=== PATIENT | male | born 1985 | race Caucasian/White ===

== ENCOUNTER 2016-12-07 16:47 | Emergency (ER) | payer BC ==
[~2016-12-07] VITALS: Ht 180.3 cm; Wt 97.7 kg
[2016-12-07 16:56] VITALS: BP 128/83; PULSE 88; RESP 16; TEMP 99; O2SAT 97
[2016-12-07] MEDS ORDERED: LIDOCAINE 2%/EPINEPHrine 1:100,000 30ML MDV INFIL ONE (17:15)
[2016-12-07] MEDS ORDERED: NORC5TAB PO (17:17)
[2016-12-07] MEDS ORDERED: PENI250T59 PO (17:17)
[2016-12-07] MEDS ORDERED: MOTR200T4 PO (17:17)
--- NOTE | 2016-12-07 17:17 | PD ---
HPI Chief Complaint: Oral / Dental Pain or Problem Time Seen by Provider: 17:09 Travel History International Travel<30 days: No Contact w/Intl Traveler<30days: No Traveled to known affect area: No History of Present Illness HPI Healthy 31-year-old male here with complaint of dental pain. Patient has had 3 days of right posterior most molar mandibular pain. Notes swelling in the back of the mouth, foul taste but has not had any significant drainage. Today he began to notice some right sided facial swelling prompting his ER visit. He does not have a dentist. PFSH Past Medical History Medical History: Denies Significant Hx Immunizations Current: Yes Tetanus Vaccination: > 5 Years Influenza Vaccination: No Past Surgical History Surgical History: No Previous Surgery Social History Alcohol Use: No Tobacco Use: Yes (1 PACK/WEEK) Substance Use: No Allergies-Medications (Allergen,Severity, Reaction): Coded Allergies: No Known Allergies (Unverified , 12/07/16) Reported Meds & Prescriptions Reported Meds & Active Scripts [facility] (Hydrocodone-Acetaminophen) 5-325 mg Tab 1-2 Tab PO Q6H PRN Motrin Ib (Ibuprofen) 200 Mg Tab 800 Mg PO TID PRN Penicillin Vk (Penicillin V Potassium) 250 Mg Tab 500 Mg PO TID 7 Days Review of Systems Except as stated in HPI: all other systems reviewed are Neg Physical Exam Narrative GENERAL: Well-appearing male in no acute distress SKIN: Warm and dry. HEAD: Normocephalic. EYES: No scleral icterus. No injection or drainage. ENT: No nasal bleeding or discharge. Mucous membranes pink and moist. Poor dentition. The right posterior most molar is carious and there is a palpable abscess along the posterior gingival mucosa. Minimal right sided facial swelling but no significant fluctuance of the face. The floor the mouth is soft. NECK: Supple CARDIOVASCULAR: Regular rate and rhythm. RESPIRATORY: No accessory muscle use. MUSCULOSKELETAL: Normal gait NEUROLOGICAL: Awake and alert. Facial nerve intact. Normal speech. PSYCHIATRIC: Appropriate mood and affect; insight and judgment normal. Data Data Last Documented VS Vital Signs Date Time Temp Pulse Resp B/P Pulse Ox O2 Delivery O2 Flow Rate FiO2 12/07/16 16:56 99.0 88 16 128/83 97 Orders Lidocai-Epi 2%-1:100,000 Inj (Xylocaine- (12/07/16 17:15) [facility] Medical Decision Making Medical Screen Exam Complete: Yes Emergency Medical Condition: Yes Medical Record Reviewed: Yes Differential Diagnosis 31-year-old male here with complaint of dental pain. Exam is consistent with dental caries with associated abscess. Evidence of Kevan angina. Narrative Course Abscess was incised and drained, please see procedure note. Patient will be discharged to home with antibiotics and outpatient dentistry follow-up. Procedures Procedure Narrative Dental block: Patient consented to dental block. Inferior alveolar nerve block was performed with 6 mL of 2% lidocaine with epinephrine with good anesthesia. INCISION AND DRAINAGE OF ABSCESS: The area was properly anesthetized as above. A number 11 blade scalpel was used to make a 0.5-cm incision across the area of the abscess. The abscess was drained an irrigated with normal saline. Diagnosis Primary Impression: Dental abscess Additional Impression: Dental caries Referrals: Dentist call for appointment Additional Instructions: Finish antibiotics as prescribed. Pain medications as needed. Follow-up with dentist as discussed and return to ER for the warning signs discussed. Med/Other Pt SpecificInfo: Prescription(s) given Scripts Hydrocodone-Acetaminophen ([facility])5-325 mg Tab1-2 Tab PO Q6H PRN (PAIN GREATER THAN 7) #10 TAB Ref 0 Prov:Stephanie Taylor MD 12/07/16 Ibuprofen (Motrin Ib)200 Mg [id number] Mg PO TID PRN (PAIN SCALE 1 TO 7) #20 TAB Ref 0 Prov:Stephanie Taylor MD 12/07/16 Penicillin V Potassium (Penicillin Vk)250 Mg [id number] Mg PO TID 7 Days Ref 0 Prov:Stephanie Taylor MD 12/07/16 Disposition: 01 DISCHARGE HOME Condition: Stable Stephanie Taylor MD Dec 07, 2016 17:17
== END 2016-12-07 17:38 | disposition home or self-care (01) ==
LOC: PHED 16:47 → PHEFT 17:38
DX: K04.7 Periapical abscess without sinus (principal); K02.9 Dental caries, unspecified; F17.210 Nicotine dependence, cigarettes, uncomplicated
CPT/HCPCS: 41800; 57200; 64400